=== PATIENT | male | born 2000 | race Caucasian/White ===

== ENCOUNTER 2020-03-05 22:17 | Emergency (ER) | payer BC ==
[~2020-03-05] VITALS: Ht 188 cm; Wt 81.7 kg
[~2020-03-05 22:17] MED LIST: AMOX500 PO; CLOT1TC TOP; CODACE30 PO; CODACEE120 PO; NEOCOLOTSU OT; Norco 5-325 Ta1 EACH PO; Silvadene20 GM TP
== END 2020-03-05 22:42 | disposition home or self-care (01) ==
LOC: ER 22:17
DX: S31.819A Unspecified open wound of right buttock, initial encounter (principal); W26.0XXA Contact with knife, initial encounter
CPT/HCPCS: 12031; 99283-25

== ENCOUNTER 2021-11-01 20:00 | Emergency (ER) | payer BC ==
[~2021-11-01] VITALS: Ht 188 cm; Wt 81.7 kg
[2021-11-01] MEDS ORDERED: Amitriptyline H10 MG PO (20:11)
[2021-11-01] MEDS ORDERED: PANT20 PO (20:11)
== END 2021-11-01 20:15 | disposition home or self-care (01) ==
LOC: ER 20:00
DX: U07.1 COVID-19 (principal); K21.9 Gastro-esophageal reflux disease without esophagitis; Z79.899 Other long term (current) drug therapy
CPT/HCPCS: 99283

== ENCOUNTER → 2022-02-14 | Outpatient (CLI) | payer BC ==
[~2022-02-14] MED LIST changes: +Amitriptyline H10 MG PO; +PANT20 PO
[2022-02-16 10:30] LABS: CHLAMYDIA TRACHOMATIS, NAA Positive (Negative)
== END ==
LOC: LAB 16:00 → LAB SHORT 16:00
PROVIDERS: Physician Assistant
DX: R30.0 Dysuria (principal)
CPT/HCPCS: 87086; 87491; 87591

== ENCOUNTER → 2022-12-04 | Outpatient (CLI) | payer BC ==
[2022-12-07 02:08] LABS: CHLAMYDIA TRACHOMATIS, NAA Positive (Negative)
== END | disposition home or self-care (01) ==
LOC: LAB 15:45 → LAB SHORT 15:45
PROVIDERS: Physician Assistant
DX: N34.2 Other urethritis (principal); Z20.2 Contact with and (suspected) exposure to infections with a predominantly sexual mode of transmission
CPT/HCPCS: 87491; 87591

== ENCOUNTER 2024-07-08 14:18 | Emergency (ER) | payer SELFPAY ==
[~2024-07-08] VITALS: Ht 190.5 cm; Wt 95.2 kg
[2024-07-08 14:39] VITALS: BP 142/63
[2024-07-08] MEDS ORDERED: AMOCLA875 PO (14:40)
== END 2024-07-08 14:41 | disposition home or self-care (01) ==
LOC: ER 14:18
DX: K04.7 Periapical abscess without sinus (principal); K63.0 Abscess of intestine; K21.9 Gastro-esophageal reflux disease without esophagitis; Z79.899 Other long term (current) drug therapy
CPT/HCPCS: 99282